=== PATIENT | female | born 2000 ===

== ENCOUNTER 2023-02-05 22:44 | Emergency (ER) | payer BC ==
[2023-02-06] MEDS ORDERED: traMADol 50 MG Tab PO ONE (01:09)
[2023-02-06] MEDS ORDERED: Orphenadrine 60 MG/2 ML Inj IM ONE (01:10)
[2023-02-06] MEDS ORDERED: Acetaminophen 325 MG Tab PO ONE (01:10)
[2023-02-06 01:28] LABS: APPEARANCE,URINE CLEAR; BILIRUBIN,URINE NEGATIVE (NEGATIVE); COLOR,URINE YELLOW; GLUCOSE,URINE NEGATIVE (NEGATIVE); KETONES,URINE NEGATIVE (NEGATIVE); LEUKOCYTE ESTERASE,URINE NEGATIVE (NEGATIVE); NITRITE,URINE NEGATIVE (NEGATIVE); OCCULT BLOOD,URINE SMALL (NEGATIVE); PH,URINE 5.5 (5.0-8.0); PROTEIN,URINE NEGATIVE (NEGATIVE); UROBILINOGEN,URINE 0.2 EU/dL (<2.0)
[2023-02-06 01:36] LABS: BACTERIA,URINE FEW (NEGATIVE); EPITHELIAL CELLS,URINE MODERATE (NONE-FEW); MUCUS,URINE MODERATE (NONE-MOD); WBC,URINE 0-2 (0-5/HPF)
== END 2023-02-06 01:55 | disposition left against medical advice (07) ==
LOC: MW.ED 22:44
DX: S39.012A Strain of muscle, fascia and tendon of lower back, initial encounter (principal)
CPT/HCPCS: 81001; 81025; 96372; 99283; A9270; J2360